=== PATIENT | male | born 1960 | race Caucasian/White ===

== ENCOUNTER 2024-03-19 11:00 | Emergency (ER) | payer OTHER ==
[2024-03-19 11:25] VITALS: BP 145/85; PULSE 60; RESP 20; TEMP 97.6; BMI 18.4
[2024-03-19] MEDS ORDERED: LIDOCAINE 5% TOPICAL PATCH ONE (11:51)
[2024-03-19] MEDS: LIDOCAINE 5% TOPICAL PATCH TP ONE (11:56)
[2024-03-19] MEDS ORDERED: LIDOCAINE PATCH REMOVAL MC ONE (22:00)
== END 2024-03-19 13:17 | disposition home or self-care (01) ==
LOC: FER 11:00
DX: M25.552 Pain in left hip (principal); W10.9XXA Fall (on) (from) unspecified stairs and steps, initial encounter
CPT/HCPCS: 73502-TC-LT-FY; 99283-25